=== PATIENT | male | born 2000 | race Hispanic/Latino ===

== ENCOUNTER 2024-08-24 17:38 | Emergency (ER) | payer OTHER ==
[~2024-08-24] VITALS: Ht 188 cm; Wt 156.5 kg
[2024-08-24 18:26] VITALS: PULSE 102; RESP 18; TEMP 98.3; O2SAT 99
[2024-08-24] MEDS: ACETAMINOPHEN 325 MG TAB PO ONE (20:44)
[2024-08-24] MEDS ORDERED: CYCLOBENZAPRINE5 MG PO (21:56)
[2024-08-24] MEDS ORDERED: NAPROSYN500 MG PO (21:56)
== END 2024-08-24 22:11 | disposition home or self-care (01) ==
LOC: ER 18:42
DX: S16.1XXA Strain of muscle, fascia and tendon at neck level, initial encounter (principal); M25.512 Pain in left shoulder; R51.9 Headache, unspecified; V43.52XA Car driver injured in collision with other type car in traffic accident, initial encounter; Y92.488 Other paved roadways as the place of occurrence of the external cause
CPT/HCPCS: 70450; 72125; 99284